=== PATIENT | female | born 1975 | race Two or more races ===

== ENCOUNTER 2023-07-19 12:54 | Emergency (ER) | payer OTHER ==
[~2023-07-19] VITALS: Ht 165.1 cm; Wt 65.0 kg
[2023-07-19] MEDS ORDERED: HALOPERIDOL LACTATE 5MG/ML VIAL IM ONE (14:45)
[2023-07-19] MEDS ORDERED: LORAZEPAM 2MG/ML CPJ IM ONE ×2 (14:45→16:30)
[2023-07-19] MEDS ORDERED: DIPHENHYDRAMINE 50MG/ML VIAL IM ONE (16:30)
[2023-07-19 17:25] LABS: BASOPHILS % 0.2 % (0.0-2.0); EOSINOPHILS % 1.1 % (0.0-5.0); HEMATOCRIT. 33.5 % (36.0-48.0); HEMOGLOBIN. 11.5 g/dL (12.0-16.0); LYMPHOCYTES % 44.8 % (20.0-50.0); MEAN CORPUSCULAR HGB CONC 34.3 g/dL (31.0-37.0); MEAN CORPUSCULAR VOLUME 93.2 fL (81.0-99.0); MEAN PLATELET VOLUME 7.9 fl (7.4-10.4); MONOCYTES % 8.3 % (2.0-8.0); NEUTROPHILS % 45.6 % (40.0-76.0); PLATELET 326 x1000/uL (130-400); RED CELL DISTRIBUTION WIDTH 13.2 % (11.6-14.6); WHITE BLOOD COUNT 5.2 x1000/uL (4.5-11.0)
[2023-07-19 17:29] LABS: CHLORIDE 112 mEq/L (98-107); INDEX HEMOLYSI 1 (1-3); INDEX ICTERIC 1 (1-4); INDEX LIPEMIC 1 (1-3); POTASSIUM 3.5 mEq/L (3.5-5.1); SODIUM 143 mEq/L (136-145)
[2023-07-19 17:39] LABS: HCG SCREEN NEGATIVE
[2023-07-19 17:42] LABS: ALANINE AMINOTRANSFERASE 895 IU/L (13-61); ALBUMIN 3.2 g/dL (3.4-5.0); ASPARTATE AMINOTRANSFERASE 1018 IU/L (15-37); BILIRUBIN TOTAL 1.3 mg/dL (0.1-1.0); CALCIUM 8.1 mg/dL (8.5-10.1); CARBON DIOXIDE 22 mEq/L (21-32); CREATININE 0.5 mg/dL (0.6-1.3); ETHANOL BLOOD 227 mg/dL (<10); GLUCOSE 92 mg/dL (70-105); PROTEIN TOTAL 6.6 g/dL (6.0-8.3); UREA NITROGEN BLOOD 5 mg/dL (7-21)
[2023-07-19 18:23] VITALS: O2SAT 99
[2023-07-19 19:06] VITALS: BP 120/78; PULSE 72; RESP 20; TEMP 98
== END 2023-07-19 19:35 | disposition left against medical advice (07) ==
LOC: ER 15:01
DX: F10.20 Alcohol dependence, uncomplicated (principal); R74.01 Elevation of levels of liver transaminase levels; Y90.7 Blood alcohol level of 200-239 mg/100 ml
CPT/HCPCS: 80053; 80320; 84703; 85025; 36415; 70450; 96372; 99285; J1200; J1630; J2060; Z7610 ×2; G0480